=== PATIENT | male | born 1960 | race Caucasian/White ===

== ENCOUNTER 2018-07-28 01:17 | Observation (INO) | payer OTHER ==
[2018-07-28] MEDS ORDERED: Enalaprilat 2.5 MG/2 ML IVP ONE (01:46)
[2018-07-28 01:58] LABS: BASO # 0.1 K/uL (0.0-0.2); BASO % 0.7 % (0.0-2.0); EOS # 0.3 K/uL (0.0-0.7); EOS % 3.4 % (0.0-4.0); HEMOGLOBIN 16.8 g/dL (12.0-18.0); LYMPH # 2.9 K/uL (1.0-4.3); MEAN CELL VOLUME 81.5 fl (80.0-94.0); MEAN CORPUSCULAR HEMOGLOBIN 27.3 pg (27.0-31.0); MEAN CORPUSCULAR HGB CONC 33.5 g/dL (33.0-37.0); MEAN PLATELET VOLUME 8.3 fl (7.2-11.7); MONO # 0.7 K/uL (0.0-0.8); MONO % 7.6 % (0.0-10.0); NEUT # 5.7 K/uL (1.8-7.0); NEUT % 58.3 % (50.0-75.0); RBC 6.16 Mil/uL (4.40-5.90); RED CELL DISTRIBUTION WIDTH 15.2 % (11.5-14.5); WHITE BLOOD COUNT 9.8 K/uL (4.8-10.8)
--- NOTE | 2018-07-28 01:59 | ED PDOC ---
HPI: Chest Pain Time Seen by Provider: 07/28/18 01:37 Chief Complaint (Nursing): Chest Pain Chief Complaint (Provider): Chest Pain History Per: Patient History/Exam Limitations: no limitations Onset/Duration Of Symptoms: Hrs Current Symptoms Are (Timing): Still Present Additional Complaint(s): Christopher Kelly is a 57 year old [place] male with a past medical history of diabetes, hypertension, dyslipidemia, and recent CVA with left-sided residual who is presenting to the ED via ALS for evaluation of chest tightness with associated shortness of breath. Patient denies any nausea or vomiting but states he had a mild headache which has since resolved. PMD: Deuce Parra - Risk Factors TAD Risk Factors: Pos: Hypertension Past Medical History Reviewed: Historical Data, Nursing Documentation, Vital Signs Vital Signs: Last Vital Signs Temp Pulse 80 07/28/18 01:48 Resp 16 07/28/18 01:48 BP 151/77 H 07/28/18 01:48 Pulse Ox 98 07/28/18 02:50 - Medical History PMH: CVA (left sided residual), Diabetes, HTN Other PMH: dyslipidemia - Surgical History Surgical History: No Surg Hx - Family History Family History: States: Unknown Family Hx - Social History Current smoker - smoking cessation education provided: No Alcohol: None Drugs: Denies - Allergies Allergies/Adverse Reactions: Allergies Allergy/AdvReac Type Severity Reaction Status Date / Time No Known Allergies Allergy Verified 07/28/18 01:38 Review of Systems ROS Statement: Except As Marked, All Systems Reviewed And Found Negative Cardiovascular: Positive for: Chest Pain Respiratory: Positive for: Shortness of Breath Gastrointestinal: Negative for: Nausea, Vomiting Neurological: Positive for: Headache Physical Exam - Reviewed Nursing Documentation Reviewed: Yes Vital Signs Reviewed: Yes - Physical Exam Appears: Positive for: Non-toxic, No Acute Distress Head Exam: Positive for: ATRAUMATIC, NORMAL INSPECTION, NORMOCEPHALIC Skin: Positive for: Normal Color, Warm, DRY Eye Exam: Positive for: EOMI, Normal appearance, PERRL ENT: Positive for: Normal ENT Inspection Neck: Positive for: Normal, Painless ROM Cardiovascular/Chest: Positive for: Regular Rate, Rhythm. Negative for: Murmur Respiratory: Positive for: Normal Breath Sounds. Negative for: Respiratory Distress Gastrointestinal/Abdominal: Positive for: Normal Exam, Soft. Negative for: Tenderness Back: Positive for: Normal Inspection. Negative for: L CVA Tenderness, R CVA Tenderness Extremity: Positive for: Normal ROM. Negative for: Deformity, Swelling Neurologic/Psych: Positive for: Alert, Oriented. Negative for: Motor/Sensory Deficits - Laboratory Results Result Diagrams: 07/28/18 01:45 07/28/18 01:45 - ECG O2 Sat by Pulse Oximetry: 98 (RA) Pulse Ox Interpretation: Normal Medical Decision Making Medical Decision Making: Time: 1:44 Impression: chest pain in setting of known hypertension and diabetes Plan: --EKG --B-Type Natriuretic Peptide --CMP --Troponin --ED Urine Dipstick --CBC --PTT--Coag --Chest X-Ray --Vasotec 2.5 mg IVP 2:40 Chest X-Ray shows no active disease. 2:47 Labs reviewed, revealed no clinically significant abnormalities. Patient will be placed under observation status due to multiple risk factors and case will be referred to Dr. Becerra, covering for Dr. Parra. Scribe Attestation: Documented by, Charlene Clarke acting as a scribe for El Schulz MD. Provider Scribe Attestation: All medical record entries made by the Scribe were at my direction and personally dictated by me. I have reviewed the chart and agree that the record accurately reflects my personal performance of the history, physical exam, medical decision making, and the department course for this patient. I have also personally directed, reviewed, and agree with the discharge instructions and disposition. Disposition - Clinical Impression Clinical Impression: Chest pain - Patient ED Disposition Is Patient to be Admitted: Yes (observation) - Disposition Disposition Time: 02:50 Condition: FAIR
[2018-07-28 02:15] LABS: ALB/GLOB RATIO 1.3 (1.0-2.1); ALBUMIN 4.4 g/dL (3.5-5.0); ALT/SGPT 51 U/L (21-72); AST/SGOT 42 U/L (17-59); BLOOD UREA NITROGEN 14 mg/dl (9-20); CALCIUM 9.7 mg/dL (8.4-10.2); GFR NON-AFRICAN AMERICAN > 60
[2018-07-28 02:33] LABS: B-TYPE NATRIURETIC PEPTIDE 80.7 pg/ml (0-900)
[2018-07-28 02:42] LABS: INR 0.9; PROTHROMBIN TIME 10.2 Seconds (9.8-13.1)
[2018-07-28 02:44] LABS: PARTIAL THROMBOPLASTIN TIME 36.4 Seconds (25.6-37.1)
--- NOTE | 2018-07-28 03:32 | CP.PCM.HP ---
<Nish Agustinessa - Last Filed: 07/28/18 05:32> History of Present Illness - History of Present Illness History of Present Illness: 57 yr old M presents to ED with complaint of dull chest pain and SOB since yesterday. PMHx includes recent ischemic CVA on 04/2018 with left sided residual weakness, HTN, hypercholesterolemia. Denies radiation of pain to left arm, sweating, nausea, vomiting, weakness, dizziness or syncope. Reports compliance with his home medications. PMD: Dr. Parra Specialists: Dr. Navarrete-endocrinology; Dr. Schaefer-neurology; has not seen a powder mixer in a few years PMHx: recent ischemic CVA on 04/2018 with left sided residual weakness, HTN, hypercholesterolemia SurgHx: thoracentesis and open thoracotomy 2000 FMHx: mother at 60-DM complications; father at 47-PA; sister at 45-ovarian cancer; other siblings healthy SocHx: denies tobacco/etoh or drugs Medications: Lipitor 20mg PO QHS, Aspirin 81mg PO QD, Lisinopril 20mg PO QD, Bystolic 10mg PO QD, Janumet 50/500 mg PO BD, Farxiga 10 mg PO QD, Tresiba 20 units SC QHS, Novolog 4 units SC at breakfast/ 6 units SC with lunch / 8 units SC with dinner Allergies: NKDA Code status: Full code Emergency contact: Tonja Kelly () [phone] ER course: 187/91 mmHg, HR 81, Resp rate 16, SpO2 98 % on room air -EKG: Normal sinus rhythm at 78 bpm, no significant ST-T changes -troponin: < 0.0120 -CXR: official report pending; prelim: no active disease -CBC wnl, CMP wnl, coags wnl, proBNP 80.7 -ER treatment: Vasotec 2.5mg IV once -BP improved in ED to 130/70 mmHg Present on Admission - Present on Admission Any Indicators Present on Admission: No History of DVT/PE: No History of Uncontrolled Diabetes: No Urinary Catheter: No Decubitus Ulcer Present: No History Surgical Site Infection Following: None Review of Systems - Constitutional Constitutional: absent: Chills, Fever - EENT Eyes: absent: Change in Vision Nose/Mouth/Throat: absent: Nasal Congestion, Sore Throat - Cardiovascular Cardiovascular: Chest Pain. absent: Dyspnea, Pain Radiating to Arm/Neck/Jaw, Lightheadedness, Palpitations, Syncope - Respiratory Respiratory: absent: Cough, Hemoptysis - Gastrointestinal Gastrointestinal: absent: Constipation, Diarrhea, Heartburn, Nausea, Vomiting - Genitourinary Genitourinary: absent: Difficulty Urinating, Dysuria - Musculoskeletal Musculoskeletal: absent: Arthralgias - Integumentary Integumentary: absent: Bleeding Lesions - Neurological Neurological: absent: Confusion, Focal Weakness - Endocrine Endocrine: absent: Polydipsia, Polyphagia, Polyuria - Hematologic/Lymphatic Hematologic: absent: Easy Bleeding, Easy Bruising Past Patient History - Past Social History Alcohol: None Drugs: Denies - CARDIAC Hx Hypertension: Yes - PULMONARY Other/Comment: left pleural effusion - NEUROLOGICAL HX Cerebrovascular Accident: Yes (left sided weakness) - ENDOCRINE/METABOLIC Hx Diabetes Mellitus Type 2: Yes - PSYCHIATRIC Hx Substance Use: No - SURGICAL HISTORY Other/Comment: left chest tube insertion. thoracotomy - ANESTHESIA Hx Anesthesia: Yes Hx Anesthesia Reactions: No Hx Malignant Hyperthermia: No Meds Allergies/Adverse Reactions: Allergies Allergy/AdvReac Type Severity Reaction Status Date / Time No Known Allergies Allergy Verified 07/28/18 01:38 Physical Exam - Constitutional Appears: No Acute Distress - Head Exam Head Exam: ATRAUMATIC, NORMOCEPHALIC - Eye Exam Eye Exam: EOMI, PERRL Pupil Exam: NORMAL ACCOMODATION - ENT Exam ENT Exam: Mucous Membranes Moist - Neck Exam Neck exam: Positive for: Full Rom. Negative for: Lymphadenopathy - Respiratory Exam Respiratory Exam: Clear to Auscultation Bilateral, NORMAL BREATHING PATTERN - Cardiovascular Exam Cardiovascular Exam: REGULAR RHYTHM, +S1, +S2 - GI/Abdominal Exam GI & Abdominal Exam: Normal Bowel Sounds, Soft (obese). absent: Tenderness - Extremities Exam Extremities exam: Positive for: full ROM, pedal pulses present. Negative for: calf tenderness, pedal edema - Back Exam Back exam: absent: CVA tenderness (L), CVA tenderness (R) - Neurological Exam Neurological exam: Alert, CN II-XII Intact, Oriented x3 - Psychiatric Exam Psychiatric exam: Normal Affect, Normal Mood - Skin Skin Exam: Dry, Normal Color, Warm Results - Vital Signs Recent Vital Signs: Last Vital Signs Temp Pulse 83 07/28/18 02:54 Resp 16 07/28/18 02:54 BP 125/72 07/28/18 02:54 Pulse Ox 97 07/28/18 02:54 - Labs Result Diagrams: 07/28/18 01:45 07/28/18 01:45 Labs: Laboratory Results - last 24 hr 07/28/18 07/28/18 07/28/18 01:20 01:45 01:45 WBC 9.8 RBC 6.16 H Hgb 16.8 Hct 50.2 MCV 81.5 MCH 27.3 MCHC 33.5 RDW 15.2 H Plt Count 168 MPV 8.3 Neut % (Auto) 58.3 Lymph % (Auto) 30.0 [place] % (Auto) 7.6 Eos % (Auto) 3.4 Baso % (Auto) 0.7 Neut # (Auto) 5.7 Lymph # (Auto) 2.9 [place] # (Auto) 0.7 Eos # (Auto) 0.3 Baso # (Auto) 0.1 PT INR APTT Sodium 136 Potassium 4.4 Chloride 101 Carbon Dioxide 24 Anion Gap 15 BUN 14 Creatinine 0.6 L Est GFR ( Amer) > 60 Est GFR (Non-Af Amer) > 60 POC Glucose (mg/dL) 210 H Random Glucose 240 H Calcium 9.7 Total Bilirubin 0.6 AST 42 ALT 51 Alkaline Phosphatase 87 Troponin I < 0.0120 NT-Pro-B Natriuret Pep 80.7 Total Protein 7.7 Albumin 4.4 Globulin 3.3 Albumin/Globulin Ratio 1.3 07/28/18 01:45 WBC RBC Hgb Hct MCV MCH MCHC RDW Plt Count MPV Neut % (Auto) Lymph % (Auto) [place] % (Auto) Eos % (Auto) Baso % (Auto) Neut # (Auto) Lymph # (Auto) [place] # (Auto) Eos # (Auto) Baso # (Auto) PT 10.2 INR 0.9 APTT 36.4 Sodium Potassium Chloride Carbon Dioxide Anion Gap BUN Creatinine Est GFR ( Amer) Est GFR (Non-Af Amer) POC Glucose (mg/dL) Random Glucose Calcium Total Bilirubin AST ALT Alkaline Phosphatase Troponin I NT-Pro-B Natriuret Pep Total Protein Albumin Globulin Albumin/Globulin Ratio Assessment & Plan - Assessment and Plan (Free Text) Assessment: 57 yr old M admitted for chest pain with PMHx uncontrolled IDDM type 2, HTN, ischemic CVA (04/2018) and hypercholesterolemia. Chest Pain -acute, r/o ACS vs noncardiac chest pain -troponin < 0.0120, EKG NSR -admit to tele, cardiac monitoring -f/u repeat EKG, serial troponins -f/u echocardiogram -heart healthy diet IDDM type 2 -uncontrolled (patient reports HbA1c 8.1 in 05/2018) -continue home medications (Janumet 50/500 mg PO BD, Farxiga 10 mg PO QD, Tresiba 20 units SC QHS, Novolog 4 units SC at breakfast/ 6 units SC with lunch / 8 units SC with dinner; Lipitor 20mg PO QHS) -hypoglycemia protocol in place -low consistent carbohydrate diet Hypertension -chronic, controlled -continue home medications (Lisinopril 20mg PO QD, Bystolic 10mg PO QD, Aspirin 81mg PO QD) -monitor BP DVT prophylaxis -Lovenox 40mg SC QD - Date & Time Date: 07/28/18 Time: 03:32 <Shuan Becerra - Last Filed: 07/28/18 08:02> History of Present Illness - History of Present Illness History of Present Illness: PT seen and examined at bedside, has chest pain which was substernal in nature, has a medical history of dm, htn, cva, dyslipidemia, who comes in with chest pressure which started last night. PT has several risk factors and despite 1st normal trop, will get workup to rule out ACS, agree with assessment above. Results - Vital Signs Recent Vital Signs: Last Vital Signs Temp 97.6 F 07/28/18 04:51 Pulse 82 07/28/18 04:51 Resp 18 07/28/18 04:51 BP 168/84 H 07/28/18 04:51 Pulse Ox 96 07/28/18 04:51 - Labs Result Diagrams: 07/28/18 01:45 07/28/18 01:45 Labs: Laboratory Results - last 24 hr 07/28/18 07/28/18 07/28/18 01:20 01:45 01:45 WBC 9.8 RBC 6.16 H Hgb 16.8 Hct 50.2 MCV 81.5 MCH 27.3 MCHC 33.5 RDW 15.2 H Plt Count 168 MPV 8.3 Neut % (Auto) 58.3 Lymph % (Auto) 30.0 [place] % (Auto) 7.6 Eos % (Auto) 3.4 Baso % (Auto) 0.7 Neut # (Auto) 5.7 Lymph # (Auto) 2.9 [place] # (Auto) 0.7 Eos # (Auto) 0.3 Baso # (Auto) 0.1 PT INR APTT Sodium 136 Potassium 4.4 Chloride 101 Carbon Dioxide 24 Anion Gap 15 BUN 14 Creatinine 0.6 L Est GFR ( Amer) > 60 Est GFR (Non-Af Amer) > 60 POC Glucose (mg/dL) 210 H Random Glucose 240 H Calcium 9.7 Total Bilirubin 0.6 AST 42 ALT 51 Alkaline Phosphatase 87 Troponin I < 0.0120 NT-Pro-B Natriuret Pep 80.7 Total Protein 7.7 Albumin 4.4 Globulin 3.3 Albumin/Globulin Ratio 1.3 07/28/18 07/28/18 01:45 05:29 WBC RBC Hgb Hct MCV MCH MCHC RDW Plt Count MPV Neut % (Auto) Lymph % (Auto) [place] % (Auto) Eos % (Auto) Baso % (Auto) Neut # (Auto) Lymph # (Auto) [place] # (Auto) Eos # (Auto) Baso # (Auto) PT 10.2 INR 0.9 APTT 36.4 Sodium Potassium Chloride Carbon Dioxide Anion Gap BUN Creatinine Est GFR ( Amer) Est GFR (Non-Af Amer) POC Glucose (mg/dL) 223 H Random Glucose Calcium Total Bilirubin AST ALT Alkaline Phosphatase Troponin I NT-Pro-B Natriuret Pep Total Protein Albumin Globulin Albumin/Globulin Ratio
[2018-07-28] MEDS ORDERED: Glucagon Recombinant 1 mg Inj IM PRN (04:49)
[2018-07-28] MEDS ORDERED: Dextrose 50% SYRINGE Inj (50 ml) IV PRN (04:49)
[2018-07-28] MEDS ORDERED: Insulin Lispro (humaLOG) 100 Units/ml Inj SC SCH ×3 (08:00→17:00)
[2018-07-28] MEDS ORDERED: INSULIN ASPART RECOMBINANT SC SCH ×2 (08:00→17:00)
--- NOTE | 2018-07-28 08:20 | CARD ---
APPROVED REPORT Date of service: 07/28/2018 <Conclusion> Normal sinus rhythm Cannot rule out Anterior infarct, age undetermined Abnormal ECG
--- NOTE | 2018-07-28 08:39 | RAD ---
Date of service: 07/28/2018 HISTORY: chest pain COMPARISON: No prior. FINDINGS: LUNGS: Vague opacity projects over the left costophrenic angle. PLEURA: No significant pleural effusion identified, no pneumothorax apparent. CARDIOVASCULAR: Probable top-normal heart size. No kelvin pulmonary venous congestion. OSSEOUS STRUCTURES: Bilateral shoulder arthrosis. VISUALIZED UPPER ABDOMEN: Normal. OTHER FINDINGS: None. IMPRESSION: Vague opacity over left costophrenic angle of unclear significance - pleural parenchymal pathology compatible with this. Its shape is less typical of a simple left pleural effusion. Can be compare with outside films if available. Otherwise consider noncontrast CT chest if needed to further evaluate.
[2018-07-28] MEDS ORDERED: Enoxaparin 40 mg Syringe SC SCH (09:00)
[2018-07-28] MEDS ORDERED: Patient's Own Med (Sitagliptin Phos/Metformin Hcl [Janumet 50-500 Mg Tablet] 1 TAB) PO SCH (09:00)
--- NOTE | 2018-07-28 10:23 | CP.PCM.CON ---
History of Present Illness - History of Present Illness History of Present Illness: This 57-year -old man, a hypertensive with diabetes mellitus for over 15 years with a strong family history of vascular disease which involves multiple members of the family having coronary artery disease or cerebrovascular disease, suffered an acute left hemiparesis while traveling in April. The patient is undergoing physical therapy and is making good progress as far as recovery of motor function is concerned. The patient has had an elevated A1c in the range of 8-9% . He has never been a smoker and has never experienced any chest discomfort while undergoing physical therapy. Last night the patient developed left pectoral discomfort which lasted for more than 5 hours and occurred while at rest. It did not radiate into his jaw or his arms. It was accompanied by a sense of shortness of breath. Physical examination shows a middle aged pleasant man quite alert awake coherent afebrile with a mild left hemiparesis. He was able to lie virtually flat and breathe comfortably at 16 breaths per minute. His heart rate was 68 bpm regular and his blood pressure was 134/80 mmHg. His extremities were warm and his nailbeds were pink. His jugular venous pressure was not elevated and there was no edema over his lower extremities. The pedal pulses were well felt. There were no carotid bruits. The apex was not palpable. The first and second heart sounds were normal. There were no murmurs and there was no gallop and there were no rales. His abdomen was soft liver and spleen are not palpable. His electrocardiogram showed sinus rhythm with no evidence of ST-T abnormalities suggestive of myocardial ischemia. There were no Q waves on his cardiogram. 2 sets of cardiac enzymes were normal. His CBC as well as his BUN/ creatinine and electrolytes were noted. Impression: Atypical chest pain with no evidence of acute coronary syndrome. Diabetes mellitus with hypertension and dyslipidemia. The patient has evidence off vascular disease in the form of a cerebrovascular accident. The patient also has a strong family history. At this juncture the patient is chest pain free and hemodynamically stable without any evidence of myocyte injury. The patient may be allowed to return home and undergo a nuclear stress test to rule out evidence of coronary artery disease. His diabetic medications are being adjusted so as to correct his hyperglycemic state. In the meantime he has been instructed to continue taking an aspirin every day. Past Patient History - Past Medical History & Family History Past Medical History?: Yes - Past Social History Alcohol: None Drugs: Denies - CARDIAC Hx Hypertension: Yes - PULMONARY Other/Comment: left pleural effusion - NEUROLOGICAL HX Cerebrovascular Accident: Yes (left sided weakness) - HEENT Hx HEENT Problems: No - RENAL Hx Chronic Kidney Disease: No - ENDOCRINE/METABOLIC Hx Diabetes Mellitus Type 2: Yes - HEMATOLOGICAL/ONCOLOGICAL Hx Blood Disorders: No - INTEGUMENTARY Hx Dermatological Problems: No - MUSCULOSKELETAL/RHEUMATOLOGICAL Hx Musculoskeletal Disorders: No Hx Falls: No - GASTROINTESTINAL Hx Gastrointestinal Disorders: No - GENITOURINARY/GYNECOLOGICAL Hx Genitourinary Disorders: No - PSYCHIATRIC Hx Substance Use: No - SURGICAL HISTORY Other/Comment: left chest tube insertion. thoracotomy - ANESTHESIA Hx Anesthesia: Yes Hx Anesthesia Reactions: No Hx Malignant Hyperthermia: No Meds Allergies/Adverse Reactions: Allergies Allergy/AdvReac Type Severity Reaction Status Date / Time No Known Allergies Allergy Verified 07/28/18 01:38 - Medications Medications: Current Medications Aspirin (Aspirin) 325 mg PO DAILY [facility] Last Admin: 07/28/18 08:35 Dose: 325 mg Atorvastatin Calcium (Lipitor) 20 mg PO HS [facility] Dextrose (Dextrose 50% Inj) 0 ml IV STAT PRN; Protocol PRN Reason: Hypoglycemia Protocol Dextrose (Glutose 15) 0 gm PO ONCE PRN; Protocol PRN Reason: Hypoglycemia Protocol Enoxaparin Sodium (Lovenox) 40 mg SC DAILY [facility] PRN Reason: Protocol Last Admin: 07/28/18 08:37 Dose: 40 mg Glucagon (Glucagen Diagnostic Kit) 0 mg IM STAT PRN; Protocol PRN Reason: Hypoglycemia Protocol Home Med (Dapagliflozin Propanediol [Farxiga]) 10 mg PO DAILY [facility] Home Med (Insulin Degludec [Tresiba Flextouch U-200]) 20 units SC HS [facility] Insulin Human Lispro (Humalog) 4 units SC BRK [facility] Last Admin: 07/28/18 08:37 Dose: 4 units Insulin Human Lispro (Humalog) 6 units SC ACL DRAKE Insulin Human Lispro (Humalog) 8 units SC DIN [facility] Lisinopril (Zestril) 20 mg PO DAILY [facility] Last Admin: 07/28/18 08:37 Dose: 20 mg Metoprolol Tartrate (Lopressor) 50 mg PO Q12 [facility] Last Admin: 07/28/18 08:40 Dose: 50 mg Results - Vital Signs Recent Vital Signs: Last Vital Signs Temp 98.1 F 07/28/18 08:16 Pulse 82 07/28/18 08:40 Resp 20 07/28/18 08:16 BP 129/74 07/28/18 08:40 Pulse Ox 96 07/28/18 08:16 - Labs Result Diagrams: 07/28/18 01:45 07/28/18 01:45 Labs: Laboratory Results - last 24 hr 07/28/18 07/28/18 07/28/18 01:20 01:45 01:45 WBC 9.8 RBC 6.16 H Hgb 16.8 Hct 50.2 MCV 81.5 MCH 27.3 MCHC 33.5 RDW 15.2 H Plt Count 168 MPV 8.3 Neut % (Auto) 58.3 Lymph % (Auto) 30.0 [place] % (Auto) 7.6 Eos % (Auto) 3.4 Baso % (Auto) 0.7 Neut # (Auto) 5.7 Lymph # (Auto) 2.9 [place] # (Auto) 0.7 Eos # (Auto) 0.3 Baso # (Auto) 0.1 PT INR APTT Sodium 136 Potassium 4.4 Chloride 101 Carbon Dioxide 24 Anion Gap 15 BUN 14 Creatinine 0.6 L Est GFR ( Amer) > 60 Est GFR (Non-Af Amer) > 60 POC Glucose (mg/dL) 210 H Random Glucose 240 H Calcium 9.7 Total Bilirubin 0.6 AST 42 ALT 51 Alkaline Phosphatase 87 Troponin I < 0.0120 NT-Pro-B Natriuret Pep 80.7 Total Protein 7.7 Albumin 4.4 Globulin 3.3 Albumin/Globulin Ratio 1.3 07/28/18 07/28/18 07/28/18 01:45 05:29 07:30 WBC RBC Hgb Hct MCV MCH MCHC RDW Plt Count MPV Neut % (Auto) Lymph % (Auto) [place] % (Auto) Eos % (Auto) Baso % (Auto) Neut # (Auto) Lymph # (Auto) [place] # (Auto) Eos # (Auto) Baso # (Auto) PT 10.2 INR 0.9 APTT 36.4 Sodium Potassium Chloride Carbon Dioxide Anion Gap BUN Creatinine Est GFR ( Amer) Est GFR (Non-Af Amer) POC Glucose (mg/dL) 223 H Random Glucose Calcium Total Bilirubin AST ALT Alkaline Phosphatase Troponin I < 0.0120 NT-Pro-B Natriuret Pep Total Protein Albumin Globulin Albumin/Globulin Ratio
[2018-07-28] MEDS ORDERED: INSULIN ASPART SC SCH (11:30)
[2018-07-28] MEDS ORDERED: [UNRECOGNIZED DRUG - OTHER] SC SCH (11:30)
[2018-07-28 12:44] VITALS: BP 130/81; RESP 18; TEMP 97.8; O2SAT 95
[2018-07-28 14:01] VITALS: PULSE 75
--- NOTE | 2018-07-28 15:03 | CP.PCM.DIS ---
<Luh Plascencia - Last Filed: 07/29/18 12:22> Provider - Provider Date of Admission: 07/28/18 02:39 Attending physician: Shaun Becerra MD Consults: Cardiology: Dr. Aguilar Time Spent in preparation of Discharge (in minutes): 30 Diagnosis - Discharge Diagnosis (1) Atypical chest pain Status: Acute Comment: Three troponin negative. Seen by Cardiology, Dr. Aguilar. F/U with Dr. Aguilar as outpatient for nuclear stress test. (2) Diabetes mellitus type 2 in obese Status: Chronic (3) Hypertension Status: Chronic Hospital Course - Lab Results Lab Results: Most Recent Lab Values WBC 9.8 K/uL (4.8-10.8) 07/28/18 01:45 RBC 6.16 Mil/uL (4.40-5.90) H 07/28/18 01:45 Hgb 16.8 g/dL (12.0-18.0) 07/28/18 01:45 Hct 50.2 % (35.0-51.0) 07/28/18 01:45 MCV 81.5 fl (80.0-94.0) 07/28/18 01:45 MCH 27.3 pg (27.0-31.0) 07/28/18 01:45 MCHC 33.5 g/dL (33.0-37.0) 07/28/18 01:45 RDW 15.2 % (11.5-14.5) H 07/28/18 01:45 Plt Count 168 K/uL (130-400) 07/28/18 01:45 MPV 8.3 fl (7.2-11.7) 07/28/18 01:45 Neut % (Auto) 58.3 % (50.0-75.0) 07/28/18 01:45 Lymph % (Auto) 30.0 % (20.0-40.0) 07/28/18 01:45 Andrews % (Auto) 7.6 % (0.0-10.0) 07/28/18 01:45 Eos % (Auto) 3.4 % (0.0-4.0) 07/28/18 01:45 Baso % (Auto) 0.7 % (0.0-2.0) 07/28/18 01:45 Neut # (Auto) 5.7 K/uL (1.8-7.0) 07/28/18 01:45 Lymph # (Auto) 2.9 K/uL (1.0-4.3) 07/28/18 01:45 Andrews # (Auto) 0.7 K/uL (0.0-0.8) 07/28/18 01:45 Eos # (Auto) 0.3 K/uL (0.0-0.7) 07/28/18 01:45 Baso # (Auto) 0.1 K/uL (0.0-0.2) 07/28/18 01:45 PT 10.2 Seconds (9.8-13.1) 07/28/18 01:45 INR 0.9 07/28/18 01:45 APTT 36.4 Seconds (25.6-37.1) 07/28/18 01:45 Sodium 136 mmol/l (132-148) 07/28/18 01:45 Potassium 4.4 MMOL/L (3.6-5.0) 07/28/18 01:45 Chloride 101 mmol/L (98-107) 07/28/18 01:45 Carbon Dioxide 24 mmol/L (22-30) 07/28/18 01:45 Anion Gap 15 (10-20) 07/28/18 01:45 BUN 14 mg/dl (9-20) 07/28/18 01:45 Creatinine 0.6 mg/dl (0.8-1.5) L 07/28/18 01:45 Est GFR ( Amer) > 60 07/28/18 01:45 Est GFR (Non-Af Amer) > 60 07/28/18 01:45 POC Glucose (mg/dL) 223 mg/dL (65-110) H 07/28/18 05:29 Random Glucose 240 mg/dL (75-110) H 07/28/18 01:45 Calcium 9.7 mg/dL (8.4-10.2) 07/28/18 01:45 Total Bilirubin 0.6 mg/dl (0.2-1.3) 07/28/18 01:45 AST 42 U/L (17-59) 07/28/18 01:45 ALT 51 U/L (21-72) 07/28/18 01:45 Alkaline Phosphatase 87 U/L (38-126) 07/28/18 01:45 Troponin I < 0.0120 ng/mL (0.00-0.120) 07/28/18 13:45 NT-Pro-B Natriuret Pep 80.7 pg/ml (0-900) 07/28/18 01:45 Total Protein 7.7 G/DL (6.3-8.2) 07/28/18 01:45 Albumin 4.4 g/dL (3.5-5.0) 07/28/18 01:45 Globulin 3.3 gm/dL (2.2-3.9) 07/28/18 01:45 Albumin/Globulin Ratio 1.3 (1.0-2.1) 07/28/18 01:45 - Hospital Course Hospital Course: 57 yr old M with PMHx uncontrolled IDDM type 2, HTN, ischemic CVA (04/2018) and hypercholesterolemia admitted for chest pain to r/o ACS. On admission EKG showed sinus rhythm with no evidence of ST-T abnormalities suggestive of myocardial ischemia. Troponin x 3 were negative. patient was seen by cardiology. Patient was seen and examined at bedside this morning with attending , Dr. Quezada, patient seen alert, oriented, and in no acute distress. Denies chest pain, SOB, cough, fevers, dizziness, or other symptoms. Spoke with Qc Analyst, and patient is cleared to be discharged home with recommended follow up as outpatient to undergo a nuclear stress test to rule out evidence of coronary artery disease. started on Metoprolol Succ 50 mg c/w aspirin , and statin - Date & Time of H&P Date of H&P: 07/28/18 Time of H&P: 03:30 Discharge Exam - Head Exam Head Exam: ATRAUMATIC, NORMOCEPHALIC - Eye Exam Eye Exam: Normal appearance - ENT Exam ENT Exam: Mucous Membranes Moist - Respiratory Exam Respiratory Exam: NORMAL BREATHING PATTERN. absent: Rhonchi, Wheezes, Stridor - Cardiovascular Exam Cardiovascular Exam: REGULAR RHYTHM, +S1, +S2 - GI/Abdominal Exam GI & Abdominal Exam: Normal Bowel Sounds, Soft. absent: Distended, Rigid, Tenderness - Extremities Exam Extremities exam: normal inspection - Neurological Exam Neurological exam: Alert, Oriented x3 Discharge Plan - Discharge Medications Prescriptions: Aspirin [Ecotrin] 81 mg PO DAILY #30 tabec Atorvastatin [Lipitor] 20 mg PO DAILY #30 tab Dapagliflozin Propanediol [Farxiga] 10 mg PO DAILY #30 tablet Insulin Aspart, Recombinant [Novolog] 8 units SC DIN #1 unit Insulin Aspart, Recombinant [Novolog] 6 units SC ACL #1 unit Insulin Aspart, Recombinant [Novolog] 4 units SC BRK #1 unit Insulin Degludec [Tresiba Flextouch U-200] 20 units SC HS #1 insuln.pen Lisinopril [Zestril] 20 mg PO DAILY #30 tab Metoprolol Succinate XL [Toprol XL] 50 mg PO DAILY #30 tab Sitagliptin Phos/Metformin HCl [Janumet 50-500 mg Tablet] 1 tab PO BID #60 tablet - Follow Up Plan Condition: STABLE Disposition: HOME/ ROUTINE Instructions: Chest Pain (DC) Additional Instructions: follow up with pmd in 2-3 days follow up with cardiology in 1 week Referrals: Joshua Aguilar MD [Staff Provider] - Deuce Parra MD [Staff Provider] - <Keila Quezada - Last Filed: 07/29/18 15:31> Provider - Provider Date of Admission: 07/28/18 02:39 Attending physician: Shaun Becerra MD Hospital Course - Lab Results Lab Results: Most Recent Lab Values WBC 9.8 K/uL (4.8-10.8) 07/28/18 01:45 RBC 6.16 Mil/uL (4.40-5.90) H 07/28/18 01:45 Hgb 16.8 g/dL (12.0-18.0) 07/28/18 01:45 Hct 50.2 % (35.0-51.0) 07/28/18 01:45 MCV 81.5 fl (80.0-94.0) 07/28/18 01:45 MCH 27.3 pg (27.0-31.0) 07/28/18 01:45 MCHC 33.5 g/dL (33.0-37.0) 07/28/18 01:45 RDW 15.2 % (11.5-14.5) H 07/28/18 01:45 Plt Count 168 K/uL (130-400) 07/28/18 01:45 MPV 8.3 fl (7.2-11.7) 07/28/18 01:45 Neut % (Auto) 58.3 % (50.0-75.0) 07/28/18 01:45 Lymph % (Auto) 30.0 % (20.0-40.0) 07/28/18 01:45 Andrews % (Auto) 7.6 % (0.0-10.0) 07/28/18 01:45 Eos % (Auto) 3.4 % (0.0-4.0) 07/28/18 01:45 Baso % (Auto) 0.7 % (0.0-2.0) 07/28/18 01:45 Neut # (Auto) 5.7 K/uL (1.8-7.0) 07/28/18 01:45 Lymph # (Auto) 2.9 K/uL (1.0-4.3) 07/28/18 01:45 Andrews # (Auto) 0.7 K/uL (0.0-0.8) 07/28/18 01:45 Eos # (Auto) 0.3 K/uL (0.0-0.7) 07/28/18 01:45 Baso # (Auto) 0.1 K/uL (0.0-0.2) 07/28/18 01:45 PT 10.2 Seconds (9.8-13.1) 07/28/18 01:45 INR 0.9 07/28/18 01:45 APTT 36.4 Seconds (25.6-37.1) 07/28/18 01:45 Sodium 136 mmol/l (132-148) 07/28/18 01:45 Potassium 4.4 MMOL/L (3.6-5.0) 07/28/18 01:45 Chloride 101 mmol/L (98-107) 07/28/18 01:45 Carbon Dioxide 24 mmol/L (22-30) 07/28/18 01:45 Anion Gap 15 (10-20) 07/28/18 01:45 BUN 14 mg/dl (9-20) 07/28/18 01:45 Creatinine 0.6 mg/dl (0.8-1.5) L 07/28/18 01:45 Est GFR ( Amer) > 60 07/28/18 01:45 Est GFR (Non-Af Amer) > 60 07/28/18 01:45 POC Glucose (mg/dL) 358 mg/dL (65-110) H 07/28/18 12:03 Random Glucose 240 mg/dL (75-110) H 07/28/18 01:45 Calcium 9.7 mg/dL (8.4-10.2) 07/28/18 01:45 Total Bilirubin 0.6 mg/dl (0.2-1.3) 07/28/18 01:45 AST 42 U/L (17-59) 07/28/18 01:45 ALT 51 U/L (21-72) 07/28/18 01:45 Alkaline Phosphatase 87 U/L (38-126) 07/28/18 01:45 Troponin I < 0.0120 ng/mL (0.00-0.120) 07/28/18 13:45 NT-Pro-B Natriuret Pep 80.7 pg/ml (0-900) 07/28/18 01:45 Total Protein 7.7 G/DL (6.3-8.2) 07/28/18 01:45 Albumin 4.4 g/dL (3.5-5.0) 07/28/18 01:45 Globulin 3.3 gm/dL (2.2-3.9) 07/28/18 01:45 Albumin/Globulin Ratio 1.3 (1.0-2.1) 07/28/18 01:45 Attending/Attestation - Attestation I have personally seen and examined this patient.: Yes I have fully participated in the care of the patient.: Yes I have reviewed all pertinent clinical information, including history, physical exam and plan: Yes Notes (Text): 07/29/18 15:31 Seen, examined, and discussed with resident. Agree with findings and plan as above.
--- NOTE | 2018-07-28 18:18 | CARD ---
APPROVED REPORT Date of service: 07/28/2018 <Conclusion> Normal sinus rhythm Normal ECG
[2018-07-28] MEDS ORDERED: INSULIN DEGLUDEC 20 UNIT SC SCH (22:00)
--- NOTE | 2018-07-29 11:06 | CARD ---
APPROVED REPORT Date of service: 07/28/2018 EXAM: Two-dimensional and M-mode echocardiogram with Doppler and color Doppler. Other Information Quality : GoodRhythm : NSR INDICATION CVA/TIA Hypertension/HCVD Chest Pain 2D DIMENSIONS IVSd1.26 (0.7-1.1cm)LVDd4.45 (3.9-5.9cm) LVOT Diameter2.53 (1.8-2.4cm)PWd0.89 (0.7-1.1cm) IVSs1.21 (0.8-1.2cm)LVDs2.83 (2.5-4.0cm) FS (%) 36.5 %PWs1.43 (0.8-1.2cm) M-Mode DIMENSIONS Left Atrium (MM)4.38 (2.5-4.0cm)IVSd1.47 (0.7-1.1cm) Aortic Root3.35 (2.2-3.7cm)LVDd4.71 (4.0-5.6cm) Aortic Cusp Exc.2.47 (1.5-2.0cm)PWd1.35 (0.7-1.1cm) IVSs1.76 cmFS (%) 38 % LVDs2.94 (2.0-3.8cm)PWs1.65 cm Mitral Valve MV E Semkupnu55.2cm/sMV DECEL [id number] A Jnibqcgg78.6cm/s MV OGB07ggO/A ratio0.9MVA (PHT)2.33cm2 TDI Lateral E' Peak V8.80cm/sMedial E' Peak V5.70cm/sE/Lateral E'5.1 E/Medial E'7.9 Pulmonary Valve PV Peak Oclbkmpy71.6cm/s LEFT VENTRICLE The left ventricle is normal size. There is normal left ventricular wall thickness. Left ventricle systolic function is normal. The Ejection Fraction is 60-65%. There is normal LV segmental wall motion. Transmitral Doppler flow pattern is Grade I-abnormal relaxation pattern. RIGHT VENTRICLE The right ventricle is normal size. There is normal right ventricular wall thickness. The right ventricular systolic function is normal. ATRIA The left atrium size is normal. The right atrium size is normal. AORTIC VALVE The aortic valve is normal in structure. No aortic regurgitation is present. There is no aortic valvular stenosis. MITRAL VALVE The mitral valve is normal in structure. There is no evidence of mitral valve prolapse. There is no mitral valve stenosis. There is no mitral valve regurgitation noted. TRICUSPID VALVE The tricuspid valve is normal in structure. There is no tricuspid valve regurgitation noted. PULMONIC VALVE The pulmonary valve is normal in structure. There is no pulmonic valvular regurgitation. GREAT VESSELS The aortic root is normal in size. The IVC is normal in size and collapses >50% with inspiration. PERICARDIAL EFFUSION The pericardium appears normal. <Conclusion> The left ventricle is normal size. There is normal left ventricular wall thickness. There is normal LV segmental wall motion. Left ventricle systolic function is normal. The Ejection Fraction is 60-65%. Transmitral Doppler flow pattern is Grade I-abnormal relaxation pattern.
== END 2018-07-28 15:30 | disposition home or self-care (01) ==
LOC: H.ER 01:17 → H.ERHOLD 02:39 → H.TEL 04:22
PROVIDERS: ADMIT Internal Medicine; ATTEND Internal Medicine
DX: R07.89 Other chest pain (principal); E11.65 Type 2 diabetes mellitus with hyperglycemia; E66.9 Obesity, unspecified; Z68.30 Body mass index [BMI] 30.0-30.9, adult; Z79.4 Long term (current) use of insulin; I10 Essential (primary) hypertension; E78.5 Hyperlipidemia, unspecified; I69.354 Hemiplegia and hemiparesis following cerebral infarction affecting left non-dominant side; E78.00 Pure hypercholesterolemia, unspecified
CPT/HCPCS: 71045; 80053; 82948; 83880; 84484; 85025; 85610; 85730; 93005; 93306; 97161; 99285; G0378; G8978; G8979; J1650